=== PATIENT | male | born 1945 | race Caucasian/White ===

== ENCOUNTER 2018-10-20 07:30 | Outpatient (CLI) | payer BC | END 2018-10-20 07:31 | disposition home or self-care (01) | LOC: CARDIO 07:30 | DX: E11.9 Type 2 diabetes mellitus without complications (principal); R00.2 Palpitations; Z01.818 Encounter for other preprocedural examination; R07.89 Other chest pain ==

== ENCOUNTER 2018-11-17 07:43 | Outpatient (CLI) | payer BC | END 2018-11-17 07:44 | disposition home or self-care (01) | LOC: RAD 07:43 ==